=== PATIENT | male | born 1995 | race Caucasian/White ===

== ENCOUNTER → 2016-07-03 | Outpatient (CLI) | payer OTHER ==
[~2016-07-03] MED LIST: METHACHOLINE KIT (J7674) INH ONE
--- NOTE | 2016-07-03 09:21 | PFTRPT ---
Tech: Cesar EGAN RRT Age: 21 Sex: Male Race: Height: 69.00 Inches Weight: 201.00 Lbs BSA: 2.07 Diagnosis: R06.02 METHACHOLINE CHALLENGE REPORT: ORDERING PROVIDER: KRYS Corrigan DATE OF SERVICE: 07/03/16 INTERPRETATION: The study was of excellent technical quality. Under protocol, methacholine was administered. At a dose of 0.025 mg (0.125 CDUs), a 43% decline in the FEV1 was noted. No PC20 was calculated. Flow rates returned to baseline post bronchodilator administration. IMPRESSION: Positive methacholine challenge study. MTDD
== END ==
LOC: M CARPUL 08:19
PROVIDERS: ATTEND Nurse Practitioner Adult Health
DX: R94.2 Abnormal results of pulmonary function studies (principal)